=== PATIENT | male | born 1995 | race Two or more races ===

== ENCOUNTER 2019-08-01 13:25 | Emergency (ER) | payer OTHER ==
[2019-08-01 13:38] VITALS: BP 129/79
--- NOTE | 2019-08-01 14:39 | ED Physician Documentation ---
History of Present Illness - Stated complaint Stated Complaint: BLOATING ITCHING/RECATAL - Chief complaint Chief Complaint: General - History obtained from History obtained from: Patient, Family - History of Present Illness Timing: How many weeks ago (2) Pain level max: 3 Pain level now: 1 - Additonal information Additional information: Patient states ate raw fish in [place] and has worms in his stool. Seen at the [facility], stool testing was performed but does not know the results yet. He was not treated. Complains of anal itching. No vomiting. No fevers. No abdominal pain. Review of Systems Constitutional: denies: Fever, Chills Respiratory: denies: Cough GI: denies: Vomiting, Diarrhea Skin: denies: Rash Musculoskeletal: denies: Neck pain, Back pain Neurologic: denies: Headache PD PAST MEDICAL HISTORY - Past Medical History Past Medical History: No - Past Surgical History Past Surgical History: No - Present Medications Home Medications: Ambulatory Orders Medication Instructions Recorded Confirmed Albendazole [Albenza] 400 mg PO ONCE #4 tablet 08/01/19 - Allergies Allergies/Adverse Reactions: Allergies Allergy/AdvReac Type Severity Reaction Status Date / Time No Known Drug Allergies Allergy Verified 08/01/19 13:33 - Living Situation Living Situation: reports: With family Living Arrangement: reports: At home - Family History Family history: reports: Non contributory PD ED PE NORMAL - Vitals Vital signs reviewed: Yes - General General: Alert and oriented X 3, No acute distress - HEENT HEENT: Moist mucous membranes - Neck Neck: Supple, no meningeal sign - Abdomen Abdomen: Soft, Non tender, Non distended - Derm Derm: Warm and dry - Neuro Neuro: Alert and oriented X 3 - Psych Psych: Normal mood, Normal affect Results - Vitals Vitals: Vital Signs - 24 hr 08/01/19 13:33 Temperature 36.8 C Heart Rate 77 Respiratory 16 Rate Blood Pressure 129/79 O2 Saturation 94 Oxygen O2 Source Room air PD MEDICAL DECISION MAKING - ED course Complexity details: considered differential, d/w patient ED course: Pictures reviewed and do appear to be pinworms. We will treat him for this. Patient counseled regarding signs and symptoms for which I believe and urgent re-evaluation would be necessary. Patient with good understanding of and agreement to plan and is comfortable going home at this time This document was made in part using voice recognition software. While efforts are made to proofread this document, sound alike and grammatical errors may occur. Departure - Departure Disposition: 01 Home, Self Care Clinical Impression: Pinworm disease Condition: Good Instructions: ED Enterobiasis Follow-Up: Vasquez Gutierrez MD [Primary Care Provider] - Within 1 week Prescriptions: Albendazole [Albenza] 400 mg PO ONCE #4 tablet Comments: Return if you worsen. You should wash all bedding and clothes. Take the albendazole, 400 mg now and then 400 mg in 2 weeks. Follow-up with your doctor for results of your stool studies.
== END 2019-08-01 14:50 | disposition home or self-care (01) ==
LOC: ED 13:25
DX: B80 Enterobiasis (principal)
CPT/HCPCS: 99282; 99284